=== PATIENT | female | born 1995 | race African-American/Black ===

== ENCOUNTER 2025-06-14 00:21 | Emergency (ER) | payer SELFPAY ==
[2025-06-14] MEDS ORDERED: Ondansetron PF 4 MG/2 ML Vial ONE (00:25)
== END 2025-06-14 04:20 | disposition home or self-care (01) ==
LOC: ERS 00:21
DX: F10.129 Alcohol abuse with intoxication, unspecified (principal)
CPT/HCPCS: 93005; 96374; J2405